=== PATIENT | male | born 1945 | race Two or more races ===

== ENCOUNTER 2023-02-14 08:15 | Inpatient (IN) | payer OTHER ==
[~2023-02-14] VITALS: Ht 167.6 cm; Wt 64.4 kg
[2023-02-14] MEDS ORDERED: SYNTH PO (11:21)
[2023-02-14] MEDS ORDERED: LIPIT PO (11:22)
[2023-02-14] MEDS ORDERED: PLAVIX75 MG PO (11:22)
[2023-02-14] MEDS ORDERED: GLUMETZA1000 MG (11:23)
[2023-02-14] MEDS ORDERED: GLIPIZIDE5 MG PO (11:23)
[2023-02-14] MEDS ORDERED: LISINOPRIL2.5 MG PO (11:23)
[2023-02-19] MEDS ORDERED: LEVO-T25 MCG (14:38)
[2023-02-19] MEDS ORDERED: ATORVASTATIN CA20 MG (14:39)
[2023-02-19] MEDS ORDERED: 8HR ARTHRITIS650 MG (14:39)
[2023-02-21] MEDS ORDERED: ELIQUIS2.5 MG PO (12:40)
[2023-02-21] MEDS ORDERED: PERCOCET 5-3251 EACH PO (12:40)
[2023-02-21] MEDS ORDERED: CIPRO500 MG PO (12:40)
== END 2023-02-21 18:08 | DRG 470 ==
LOC: O/R 02-19 05:57 → SURG 02-19 08:15
PROVIDERS: ADMIT Orthopaedic Surgery; ATTEND Orthopaedic Surgery
PROC: 0MNP0ZZ Release Left Knee Bursa and Ligament, Open Approach (ICD-10-PCS; 2023-02-19)
PROC: 0SRD0J9 Replacement of Left Knee Joint with Synthetic Substitute, Cemented, Open Approach (ICD-10-PCS; principal; 2023-02-19 17:00)
DX: M17.12 Unilateral primary osteoarthritis, left knee (principal); D62 Acute posthemorrhagic anemia; M22.12 Recurrent subluxation of patella, left knee; E11.9 Type 2 diabetes mellitus without complications; I10 Essential (primary) hypertension; Z79.4 Long term (current) use of insulin